=== PATIENT | female | born 1970 | race Caucasian/White ===

== ENCOUNTER 2022-12-14 10:26 | Emergency (ER) | payer SELFPAY | END 2022-12-14 11:55 | disposition home or self-care (01) | LOC: ERS 10:26 | DX: R59.0 Localized enlarged lymph nodes (principal); E03.9 Hypothyroidism, unspecified; J44.9 Chronic obstructive pulmonary disease, unspecified; F17.210 Nicotine dependence, cigarettes, uncomplicated; Z79.84 Long term (current) use of oral hypoglycemic drugs; Z79.899 Other long term (current) drug therapy | CPT/HCPCS: 99283 ==